=== PATIENT | male | born 2000 | race Caucasian/White ===

== ENCOUNTER 2020-11-23 14:51 | Emergency (ER) | payer OTHER ==
[~2020-11-23] VITALS: Ht 172.7 cm; Wt 65.8 kg
[2020-11-23 15:01] VITALS: BP 139/87
[2020-11-23] MEDS ORDERED: ZOFRAN ODT4 MG PO (17:34)
[2020-11-23] MEDS ORDERED: IBUPROFEN 800800 M1 PO (17:34)
== END 2020-11-23 17:42 | disposition home or self-care (01) ==
LOC: M.ERS 14:51
DX: S06.0X1A Concussion with loss of consciousness of 30 minutes or less, initial encounter (principal); V00.131A Fall from skateboard, initial encounter; Y93.51 Activity, roller skating (inline) and skateboarding; Y92.89 Other specified places as the place of occurrence of the external cause; Y99.9 Unspecified external cause status